=== PATIENT | male | born 1985 | race Two or more races ===

== ENCOUNTER 2024-07-25 10:39 | Emergency (ER) | payer OTHER, SELFPAY ==
[2024-07-25 10:59] VITALS: BP 158/99; PULSE 81; RESP 16; TEMP 36.7; O2SAT 98
--- NOTE | 2024-07-25 11:15 | XR_ITS ---
WS: [id number] Exam: XR elbow LT min 3V* [id number] Date/Time of Exam: 07/25/2024 11:28 AM Reason For Exam: Nontraumatic elbow pain No fracture or dislocation. No joint effusion. The joints are preserved. Normal soft tissues. XR/XR elbow LT min 3V* [id number] IMPRESSION: 1. Normal LEFT elbow.
== END 2024-07-25 14:48 | disposition left against medical advice (07) ==
PROVIDERS: Emergency Provider Family Medicine
DX: Z53.21 Procedure and treatment not carried out due to patient leaving prior to being seen by health care provider (principal); M25.522 Pain in left elbow
CPT/HCPCS: 73080